=== PATIENT | female | born 1980 | race American Indian/Alaskan Native ===

== ENCOUNTER 2018-01-09 21:10 | Emergency (ER) | payer MEDICAID ==
[2018-01-09 21:57] VITALS: BP 118/74
== END 2018-01-10 01:00 | disposition left against medical advice (07) ==
LOC: ED 21:10
DX: R20.0 Anesthesia of skin (principal); Z53.21 Procedure and treatment not carried out due to patient leaving prior to being seen by health care provider

== ENCOUNTER 2018-12-28 15:25 | Emergency (ER) | payer MEDICAID ==
[2018-12-28 15:36] VITALS: BP 140/88
--- NOTE | 2018-12-28 15:37 | Event Note ---
ED Screening Note Date of service: 12/28/18 Time: 15:34 ED Screening Note: 38 y/o female comes in for abd pain with hematuria. Has urinary frequency and urgency. Smokes LMP 12/10/18. This initial assessment/diagnostic orders/clinical plan/treatment(s) is/are subject to change based on patients health status, clinical progression and re- assessment by fellow clinical providers in the ED. Further treatment and workup at subsequent clinical providers discretion. Patient/guardian urged not to elope from the ED as their condition may be serious if not clinically assessed and managed. Initial orders include:
[2018-12-28 16:43] LABS: Bilirubin,Urine NEG (Negative); Blood,Urine NEG (Negative); Color,Urine Yellow (Yellow); Mucus,Urine 2+ /HPF; Protein,Urine <15 mg/dL mg/dL (Negative); Urobilinogen,Urine < 2.0 mg/dL (<2.0)
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
== END 2018-12-28 18:06 | disposition home or self-care (01) ==
LOC: ED 15:25
DX: N39.0 Urinary tract infection, site not specified (principal); K21.9 Gastro-esophageal reflux disease without esophagitis; G43.909 Migraine, unspecified, not intractable, without status migrainosus; J45.909 Unspecified asthma, uncomplicated; F17.200 Nicotine dependence, unspecified, uncomplicated
CPT/HCPCS: 36415; 81001; 84702

== ENCOUNTER 2019-01-18 14:58 | Outpatient (CLI) | payer MEDICAID ==
--- NOTE | 2019-01-18 18:34 | XRay Report ---
ABDOMEN 1 VIEW(S) INDICATION / CLINICAL INFORMATION: N20.0 )CALCULUS OF KIDNEY. COMPARISON: None available. FINDINGS: TUBES / LINES: None. BOWEL GAS PATTERN: No significant abnormality. ADDITIONAL FINDINGS: No significant additional findings. IMPRESSION: No acute abnormality. Signer Name: Sanjeev Richardson MD Signed: 01/18/2019 6:29 PM Workstation Name: [id number]
--- NOTE | 2019-01-19 07:27 | Ultrasound Report ---
Pelvic Ultrasound HISTORY: R10.2) PELVIC PERINAL PAIN. Acute generalized pelvic pain TECHNIQUE: Grayscale and color Doppler imaging performed. COMPARISON: None FINDINGS: Transabdominal and endovaginal imaging was performed. Uterus measures 6.7 x 3.6 x 4.5 cm with endometrial echocomplex measuring 7 mm. Both ovaries are norm al in size and appearance with trace simple pelvic free fluid. There are tiny bilateral ovarian folli cles. Follicles and trace fluid are likely physiologic in a woman of this age. IMPRESSION: Unremarkable exam. Signer Name: Juan Mendez MD Signed: 01/19/2019 7:23 AM Workstation Name: [id number]
--- NOTE | 2019-01-22 14:16 | Mammography Report ---
BILATERAL DIGITAL SCREENING MAMMOGRAM WITH CAD INDICATION: Baseline screening COMPARISONS: None. FINDINGS: Craniocaudal and mediolateral oblique views of both breasts were obtained using 2-D digital acquisition. In addition to standard review, the examination was analyzed for possible abnormalities using a computer-assisted detection device (iCAD). The breast tissue is heterogeneously dense, which may obscure small masses. Bilateral parenchymal asymmetries with architectural distortion requiring additional imaging. No susp icious calcifications. IMPRESSION: Bilateral asymmetries and architectural distortion requiring additional imaging. Recommend recall for bilateral spot compression views and bilateral breast ultrasound if needed. BI-RADS CATEGORY 0: INCOMPLETE - NEED ADDITIONAL IMAGING EVALUATION AND/OR PRIOR MAMMOGRAMS FOR COMP ARISON Information is entered into a reminder system for a target due date for the next mammogram. The resul ts and recommendations were sent to the patient by mail. Signer Name: Juancarlos Mckoy MD Signed: 01/22/2019 2:12 PM Workstation Name: [id number]
== END 2019-01-18 14:59 | disposition home or self-care (01) ==
LOC: US 14:58
PROVIDERS: ATTEND Obstetrics & Gynecology
DX: Z12.31 Encounter for screening mammogram for malignant neoplasm of breast (principal); N20.0 Calculus of kidney; F17.210 Nicotine dependence, cigarettes, uncomplicated
CPT/HCPCS: 74018; 76830; 76856; 77067